=== PATIENT | male | born 1980 | race Caucasian/White ===

== ENCOUNTER 2022-01-04 14:44 | Observation (INO) ==
[2022-01-04] MEDS ORDERED: Acetaminophen 325 MG TABLET PO ONE (19:37)
[2022-01-04] MEDS ORDERED: Morphine Sulfate 2 MG/ML SYRINGE IVP ONE (19:37)
[2022-01-04] MEDS ORDERED: levoFLOXacin 500 MG/100 ML 500 MG/100 ML BAG IVPB ONE (20:08)
[2022-01-04] MEDS ORDERED: Morphine Sulfate 2 MG/ML SYRINGE IVP PRN (20:10)
[2022-01-04] MEDS ORDERED: *HR* OxyCODONE Immed Rel 5 MG TABLET PO PRN ×2 (20:11)
[2022-01-04] MEDS ORDERED: Acetaminophen 325 MG TABLET PO PRN (20:11)
[2022-01-04] MEDS ORDERED: Famotidine 20 MG/2 ML VIAL IVP ONE (20:38)
[2022-01-04] MEDS ORDERED: Acetaminophen IV 1,000 MG/100 ML BAG IVPB ONE ×2 (20:38→20:43)
[2022-01-04] MEDS ORDERED: *HR* FentaNYL (PF) 100 MCG/2 ML VIAL ONE (20:39)
[2022-01-04] MEDS ORDERED: *HR* Propofol 200 MG/20 ML VIAL IVP ONE ×2 (20:39→21:26)
[2022-01-04] MEDS ORDERED: *HR* Midazolam HCl 2 MG/2 ML VIAL ONE (20:39)
[2022-01-04] MEDS ORDERED: MetroNIDAZOLE 500 MG/100 ML 500 MG/100 ML BAG IVPB ONE (20:39)
[2022-01-04] MEDS ORDERED: Ondansetron 4 MG/2 ML VIAL ONE (20:43)
[2022-01-04] MEDS ORDERED: Lidocaine -MPF 2% 2 ML VIAL ONE (20:43)
[2022-01-04] MEDS ORDERED: Famotidine 20 MG/2 ML VIAL ONE (20:43)
[2022-01-04] MEDS ORDERED: *HR* Succinylcholine 200 MG/10 ML VIAL IVP ONE (20:43)
[2022-01-04] MEDS ORDERED: *HR* Rocuronium Bromide 50 MG/5 ML VIAL ONE ×2 (20:43→22:12)
[2022-01-04] MEDS ORDERED: Lidocaine HCL 4 ML Topical Solution (Laryng-O-Jet Kit Sterile Pak) TP ONE (20:43)
[2022-01-04] MEDS ORDERED: *HR* HYDROmorphone PF 0.5 MG/0.5 ML SYRINGE IVP PRN (21:22)
[2022-01-04] MEDS ORDERED: Ondansetron 4 MG/2 ML VIAL IVP PRN (21:22)
[2022-01-04 21:23] LABS: Basophils % 0.2 %; Eosinophils # 0.1 K/mcL (0.0-0.6); Eosinophils % 0.9 %; Hematocrit 40.5 % (37.5-50.1); Immature Granulocytes % 0.4 % (0-4); Lymphocytes # 1.2 K/mcL (0.6-4.6); Lymphocytes % 8.4 %; Mean Corpuscular HGB Conc 34.6 g/dL (31.6-35.5); Mean Corpuscular Hemoglobin 29.7 pg (28.0-33.3); Mean Platelet Volume 9.5 fL (9.4-12.4); Monocytes # 1.2 K/mcL (0.0-1.3); Monocytes % 8.4 %; Neutrophils # 11.2 K/mcL (1.6-8.9); Platelet Count 231 K/mcL (140-400); Red Blood Count 4.71 M/mcL (4.19-5.50); Red Cell Distribution Width 12.5 % (11.5-14.5); Segmented Neutrophils % 81.7 %; White Blood Count 13.7 K/mcL (4.3-11.1)
[2022-01-04 21:42] LABS: Alanine Aminotransferase 17 Units/L (7-52); Albumin/Globulin Ratio 1.6 (1.1-2.2); Alkaline Phosphatase 48 Units/L (34-104); Aspartate Amino Transferase 17 Units/L (13-39); BUN/Creatinine Ratio 11 (6-26); Bilirubin,Total 1.3 mg/dL (0.3-1.0); Blood Urea Nitrogen 9 mg/dL (6-20); Calcium 8.9 mg/dL (8.6-10.3); Carbon Dioxide 25 mEq/L (23-29); Chloride 104 mEq/L (98-107); Globulin 2.5 g/dL (2.4-3.5); Glucose 105 mg/dL (70-105); Osmolality,Calculated 281 (280-300); Potassium 3.7 mEq/L (3.5-5.1); Sodium 136 mEq/L (136-145); Total Protein 6.5 g/dL (6.4-8.9); eGFR For African Americans > 60 (> 60); eGFR For Non-African Americans > 60 (> 60)
[2022-01-04] MEDS ORDERED: Lidocaine/EPI 1:100k 1% 50 ML VIAL ONE (21:42)
[2022-01-04] MEDS ORDERED: Bupivacaine-MPF 0.25% 10 ML VIAL ONE (21:42)
[2022-01-04] MEDS ORDERED: Sugammadex Sodium 200 MG/2 ML VIAL IV ONE (22:11)
[2022-01-04] MEDS ORDERED: *HR* Magnesium Sulfate 1 GM/2 ML VIAL ONE (22:11)
[2022-01-04] MEDS ORDERED: *HR* HYDROMORPHONE 2 MG/ML VIAL ONE (22:11)
[2022-01-04] MEDS ORDERED: Ketorolac 30 MG/ML VIAL IVP PRN (22:41)
[2022-01-04] MEDS ORDERED: *HR* Promethazine 25 MG/ML VIAL IVPB ONE (23:29)
[2022-01-04] MEDS ORDERED: Promethazine 12.5 MG in 0.9 % Sodium Chloride 50 ML IVPB ONE (23:45)
[2022-01-05] MEDS: Ringers Solution, Lactated 1,000 ML IVC SCH ×2 (06:16→06:34)
[2022-01-05 07:17] VITALS: O2SAT 97
[2022-01-05 11:36] VITALS: BP 129/80; PULSE 80; TEMP 99.1
== END 2022-01-05 13:18 | disposition home or self-care (01) ==
LOC: 3ANU
PROVIDERS: ADMIT Surgery; ATTEND Surgery